=== PATIENT | female | born 1955 | race Two or more races ===

== ENCOUNTER 2021-07-04 08:00 | Outpatient (CLI) | payer OTHER | END 2021-07-04 08:30 | disposition home or self-care (01) | LOC: PPH VACUNA 08:00 | PROVIDERS: ATTEND Emergency Medicine Pediatric Emergency Medicine | DX: Z23 Encounter for immunization (principal) ==

== ENCOUNTER 2021-11-25 07:46 | Outpatient (CLI) | payer OTHER | END 2021-11-25 07:50 | disposition home or self-care (01) | LOC: RX STUDY 07:46 | PROVIDERS: ATTEND Internal Medicine Gastroenterology | DX: K21.9 Gastro-esophageal reflux disease without esophagitis (principal) ==

== ENCOUNTER 2022-09-09 10:03 | Outpatient (CLI) | payer OTHER | END 2022-09-09 10:07 | disposition home or self-care (01) | LOC: SONOGRAMA 10:03 | PROVIDERS: ATTEND Internal Medicine Endocrinology, Diabetes & Metabolism | DX: E04.2 Nontoxic multinodular goiter (principal) ==

== ENCOUNTER 2023-01-29 11:54 | Outpatient (CLI) | payer OTHER | END 2023-01-29 12:00 | disposition home or self-care (01) | LOC: NUCLEAR 11:54 | PROVIDERS: ATTEND Psychiatry & Neurology Neurology | DX: G30.8 Other Alzheimer's disease (principal) | CPT/HCPCS: 78803; A9557 ==

== ENCOUNTER 2023-06-03 07:17 | Outpatient (CLI) | payer OTHER | END 2023-06-03 07:18 | disposition home or self-care (01) | LOC: NUCLEAR 07:17 | PROVIDERS: ATTEND Psychiatry & Neurology Neurology | DX: M05.9 Rheumatoid arthritis with rheumatoid factor, unspecified (principal) | CPT/HCPCS: 78315; A9503 ==

== ENCOUNTER 2023-06-08 12:32 | Outpatient (CLI) | payer OTHER | END 2023-06-08 12:40 | disposition home or self-care (01) | LOC: RAD 12:32 | PROVIDERS: ATTEND Internal Medicine Endocrinology, Diabetes & Metabolism | DX: M19.90 Unspecified osteoarthritis, unspecified site (principal) ==